=== PATIENT | male | born 1970 | race Caucasian/White ===

== ENCOUNTER 2017-03-16 14:05 | Emergency (ER) | payer SELFPAY ==
[~2017-03-16] VITALS: Ht 177.8 cm; Wt 105.5 kg
[~2017-03-16 14:05] MED LIST: OILCAP PO; PENI500T PO; TRAM50TA PO
[2017-03-16 14:09] VITALS: BP 133/87; PULSE 80; RESP 18; TEMP 97.8; O2SAT 94
--- NOTE | 2017-03-16 14:39 | PD ---
HPI Chief Complaint: Musculoskeletal Complaint Time Seen by Provider: 14:31 Travel History International Travel<30 days: No Contact w/Intl Traveler<30days: No Traveled to known affect area: No History of Present Illness HPI Patient is a 47-year-old male who presents to emergency with complaints of left sided knee pain for the past week. 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 Patient denies any injury or trauma to his knee besides picking up the lawnmower. Denies fever/chills. Reports pain with ROM to knee PFSH Past Medical History Hx Anticoagulant Therapy: No Asthma: Yes Cardiac Catheterization: Yes (2003) Cardiovascular Problems: Yes High Cholesterol: Yes Chemotherapy: No Cerebrovascular Accident: No Diabetes: No Diminished Hearing: No GERD: Yes Headaches: Yes (Tension) Musculoskeletal: Yes (Chronic neck pain after head injury 7 years ago) Neurologic: Yes (Trigeminal neuralgia) Respiratory: Yes (ASTHMA) Immunizations Current: Yes Migraines: Yes Tetanus Vaccination: > 5 Years Influenza Vaccination: No Past Surgical History Coronary Artery Bypass Graft: Yes (2003) Hysterectomy: No Social History Alcohol Use: No Tobacco Use: No Substance Use: No Allergies-Medications (Allergen,Severity, Reaction): Coded Allergies: Klonopin (Verified Allergy, Severe, Psychosis, 03/16/17) Lyrica (Verified Allergy, Unknown, Joint Pain, 03/16/17) Reported Meds & Prescriptions Reported Meds & Active Scripts Active Percocet (Oxycodone-Acetaminophen) 5-325 mg Tab 1 Tab PO Q6H PRN Ibuprofen 600 Mg Tab 600 Mg PO Q6H PRN Review of Systems General / Constitutional: No: Fever Eyes: No: Visual changes HENT: No: Headaches Cardiovascular: No: Chest Pain or Discomfort Respiratory: No: Shortness of Breath Gastrointestinal: No: Abdominal Pain Genitourinary: No: Dysuria Musculoskeletal: Positive: Pain (pain with ROM to left knee), No: Limited ROM Skin: No Rash Neurologic: No: Weakness Psychiatric: No: Depression Endocrine: No: Polydipsia Hematologic/Lymphatic: No: Easy Bruising Physical Exam Narrative GENERAL: nad, nontoxic SKIN: Focused skin assessment warm/dry. HEAD: Atraumatic. Normocephalic. EYES: Pupils equal and round. No scleral icterus. No injection or drainage. ENT: No nasal bleeding or discharge. Mucous membranes pink and moist. NECK: Trachea midline. No JVD. CARDIOVASCULAR: Regular rate and rhythm. No murmur appreciated. RESPIRATORY: No accessory muscle use. Clear to auscultation. Breath sounds equal bilaterally. GASTROINTESTINAL: Abdomen soft, non-tender, nondistended. Hepatic and splenic margins not palpable. MUSCULOSKELETAL: No obvious deformities. No clubbing. No cyanosis. No edema. Patient with pain to lateral knee with ROM, no obvious fx, pulses intact, neurovascularly intact NEUROLOGICAL: Awake and alert. No obvious cranial nerve deficits. Motor grossly within normal limits. Normal speech. PSYCHIATRIC: Appropriate mood and affect; insight and judgment normal. Data Data Last Documented VS Vital Signs Date Time Temp Pulse Resp B/P Pulse Ox O2 Delivery O2 Flow Rate FiO2 03/16/17 14:09 97.8 80 18 133/87 94 Orders Knee, Complete (4vws) (03/16/17 ) Oxycodone-Acetamin 5-325 Mg (Percocet (03/16/17 14:45) MDM Medical Decision Making Medical Screen Exam Complete: Yes Emergency Medical Condition: Yes Interpretation(s) Vital Signs Date Time Temp Pulse Resp B/P Pulse Ox O2 Delivery O2 Flow Rate FiO2 03/16/17 14:09 97.8 80 18 133/87 94 Differential Diagnosis Knee sprain, knee contusion, arthritis Narrative Course Patient is a 47-year-old male who presents to emergency room with complaints of left-sided knee pain. 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 Reports pain with ROM to left knee. No other injuries or trauma. Xray of knee ordered Last Impressions Knee X-Ray 03/16/17 0000 Signed Impressions: Service Date/Time: Thursday, March 16, 2017 14:35 - CONCLUSION: 1. Mild degenerative change in patellofemoral joint. 2. Small joint effusion. 3. No acute fracture or malalignment. Niraj Alicea MD patient given a copy of her xray report. patient will follow up with pcp and ortho as outpt and will return to ER as needed. knee pain most likely from inflammation from slight spurring in patellofemoral joint Diagnosis Primary Impression: Degenerative joint disease of knee, left Qualified Code: M17.12 - Primary osteoarthritis of left knee Additional Impression: Joint effusion, knee Qualified Code: M25.462 - Effusion of left knee Patient Instructions: General Instructions, Narcotic given in the ED Additional Instructions: Please follow up with your primary care doctor Return to ER as needed Rest/ice and elevate your left leg. Please bring your radiology report to your doctor's office for follow up on all findings from today Med/Other Pt SpecificInfo: Prescription(s) given Scripts Oxycodone-Acetaminophen (Percocet)5-325 mg Tab1 Tab PO Q6H PRN (PAIN) #12 TAB Ref 0 Prov:Kavita Godoy DO 03/16/17 Ibuprofen 600 Mg [id number] Mg PO Q6H PRN (Pain/Inflammation) #40 TAB Ref 0 Prov:Kavita Godoy DO 03/16/17 Disposition: 01 DISCHARGE HOME Condition: Stable Kavita Godoy DO Mar 16, 2017 14:39
[2017-03-16] MEDS ORDERED: oxyCODONE/ACETAMINOPHEN 5 MG/325 MG TAB PO ONE (14:45)
--- NOTE | 2017-03-16 14:57 | RADHPO ---
EXAM DATE/TIME: 03/16/2017 14:35 [facility] COMPARISON: No previous studies available for comparison. INDICATIONS : Left knee pain; fall 2 weeks ago. MEDICAL HISTORY : None. SURGICAL HISTORY : None. ENCOUNTER: Initial ACUITY: 2 weeks PAIN SCORE: 7/10 LOCATION: Left lateral knee FINDINGS: Four view examination of the left knee demonstrates no evidence of fracture or dislocation. Bony min eralization is normal. The articular surfaces are intact. There is fullness in the suprapatellar bur sa region consistent with a small joint effusion. Mild degenerative changes noted in the patellofemor al joint with slight spurring. CONCLUSION: 1. Mild degenerative change in patellofemoral joint. 2. Small joint effusion. 3. No acute fracture or malalignment. Niraj Alicea MD on March 16, 2017 at 14:54 Board Certified Radiologist. This report was verified electronically.
[2017-03-16] MEDS ORDERED: PERC5TAB12 PO (15:05)
[2017-03-16] MEDS ORDERED: IBUP-232 PO (15:05)
== END 2017-03-16 15:30 | disposition home or self-care (01) ==
LOC: PHED 14:05
DX: M17.12 Unilateral primary osteoarthritis, left knee (principal); M25.462 Effusion, left knee; E78.00 Pure hypercholesterolemia, unspecified; Z87.09 Personal history of other diseases of the respiratory system; Z86.79 Personal history of other diseases of the circulatory system; Z87.19 Personal history of other diseases of the digestive system; Z87.39 Personal history of other diseases of the musculoskeletal system and connective tissue; Z86.69 Personal history of other diseases of the nervous system and sense organs; X50.0XXA Overexertion from strenuous movement or load, initial encounter; Y99.0 Civilian activity done for income or pay
CPT/HCPCS: 73564; 99283

== ENCOUNTER 2017-06-27 13:42 | Emergency (ER) | payer SELFPAY ==
[~2017-06-27] VITALS: Ht 177.8 cm; Wt 100.0 kg
[~2017-06-27 13:42] MED LIST changes: +IBUP-232 PO; -OILCAP PO; -PENI500T PO; +PERC5TAB12 PO; -TRAM50TA PO
[2017-06-27 13:50] VITALS: BP 138/97; PULSE 94; RESP 18; TEMP 97.5; O2SAT 95
--- NOTE | 2017-06-27 14:25 | PD ---
HPI Chief Complaint: Pain: Acute or Chronic Time Seen by Provider: 14:10 Travel History International Travel<30 days: No Contact w/Intl Traveler<30days: No Traveled to known affect area: No History of Present Illness HPI 47-year-old male presents to the emergency room for evaluation of chronic right foot pain. Pain is been intermittent for the past year. No trauma or injury. Localized to the posterior calcaneus with radiation along the entire plantar section. He has bought several different orthopedic shoe inserts without significant relief in symptoms. He has also been taking BC powders occasionally. Pain started off as worse in the morning but is now worse at night. It is painful to apply any pressure to the bottom of the foot or push the pedal of his car. Patient states he cannot follow up with her primary care physician because he does not have finances to do so at this time. He is requesting a cortisone injection. History Past Medical Histgory Hx Chemotherapy: No Social History Alcohol Use: No Tobacco Use: No Allergies-Medications (Allergen,Severity, Reaction): Coded Allergies: Klonopin (Verified Allergy, Severe, Psychosis, 06/27/17) Lyrica (Verified Allergy, Unknown, Joint Pain, 06/27/17) Reported Meds & Prescriptions Reported Meds & Active Scripts Active No Active Prescriptions or Reported Medications Review of Systems Except as stated in HPI: all other systems reviewed are Neg Physical Exam Narrative GENERAL: Well-nourished, well-developed male in no acute distress. Afebrile. Ambulatory. SKIN: Focused skin assessment warm/dry. HEAD: Normocephalic. EYES: No scleral icterus. No injection or drainage. NECK: Supple, trachea midline. No JVD or lymphadenopathy. CARDIOVASCULAR: Regular rate and rhythm without murmurs, gallops, or rubs. RESPIRATORY: Breath sounds equal bilaterally. No accessory muscle use. MUSCULOSKELETAL: No cyanosis. No significant edema of the right foot. Full range of motion of the right foot. 2+ dorsalis pedis pulse. No erythema or ecchymosis. Tenderness to palpation of the plantar foot. Data Data Last Documented VS Vital Signs Date Time Temp Pulse Resp B/P Pulse Ox O2 Delivery O2 Flow Rate FiO2 06/27/17 13:50 97.5 94 18 138/97 95 MDM Medical Screen Exam Complete: Yes Emergency Medical Condition: No Differential Diagnosis Plantar fasciitis Narrative Course 47-year-old male presents to the emergency room for evaluation of chronic right foot pain. No trauma or injury. Right lower extremity is neurovascularly intact with 2+ dorsalis pedis pulse. No significant physical exam findings. History and physical exam are consistent with plantar fasciitis. Patient was informed we do not do cortisone injections in the emergency room. He was discharged with information for the [facility] and a pamphlet of plantar fasciitis exercises. Told to follow-up with the clinic for possible cortisone injection and/or referral or return for worsening symptoms. He understands and agrees to plan. A medical screening exam was performed: At the time of evaluation the presenting medical condition was determined not to be of an emergent nature. The patient was given the option of receiving additional care, but declined. Patient was given options for additional community resources from which to obtain care. The Patient Has Been advised to seek medical attention for their presenting complaint. The patient has been advised to return to the ER at any time if an emergent condition develops. Primary Impression: Encounter for medical screening examination Scripts No Active Prescriptions or Reported Meds Disposition: 01 DISCHARGE HOME Condition: Stable Quin Devi Jun 27, 2017 14:25
== END 2017-06-27 14:30 | disposition left against medical advice (07) ==
LOC: PHEFT 13:42
DX: M79.671 Pain in right foot (principal)
CPT/HCPCS: 99281

== ENCOUNTER 2018-02-20 10:54 | Emergency (ER) | payer SELFPAY ==
[~2018-02-20] VITALS: Ht 177.8 cm; Wt 104.0 kg
[2018-02-20 10:57] VITALS: BP 124/95; PULSE 72; RESP 18; TEMP 97.7; O2SAT 97
[2018-02-20] MEDS ORDERED: DIAZEPAM 5 MG TAB PO ONE (12:00)
[2018-02-20] MEDS ORDERED: KETOROLAC TROMETHAMINE 60 MG/2 ML (IM) VIAL IM ONE (12:00)
[2018-02-20] MEDS ORDERED: ROBA750T PO (12:13)
[2018-02-20] MEDS ORDERED: IBUP1TAB7 PO (12:13)
--- NOTE | 2018-02-20 12:14 | PD ---
HPI Chief Complaint: Back/ Neck Pain or Injury Time Seen by Provider: 11:39 Travel History International Travel<30 days: No Contact w/Intl Traveler<30days: No Traveled to known affect area: No History of Present Illness HPI This is a 48-year-old male here with low back pain since last night. He reports he has had similar episodes in the past when he has strained muscles. He denies fever, chills, incontinence, saddle anesthesia paresthesia or weakness in extremities. Pain is worse with movement and relieved with rest. Symptom severity is moderate. PFSH Past Medical History Hx Anticoagulant Therapy: No Asthma: Yes Cardiac Catheterization: Yes (2003) Cardiovascular Problems: Yes High Cholesterol: Yes Chemotherapy: No Cerebrovascular Accident: No Diabetes: Yes (II) Patient Takes Glucophage: No Diminished Hearing: No GERD: Yes Headaches: Yes (Tension) Musculoskeletal: Yes (Chronic neck pain after head injury 7 years ago) Neurologic: Yes (Trigeminal neuralgia) Respiratory: Yes (ASTHMA) Immunizations Current: Yes Migraines: Yes Past Surgical History Coronary Artery Bypass Graft: Yes (2003) Hysterectomy: No Social History Alcohol Use: No Tobacco Use: No Substance Use: No Allergies-Medications (Allergen,Severity, Reaction): Coded Allergies: clonazepam (Unverified Allergy, Severe, Psychosis, 02/20/18) pregabalin (Unverified Allergy, Unknown, Joint Pain, 02/20/18) Reported Meds & Prescriptions Reported Meds & Active Scripts Active No Active Prescriptions or Reported Medications Review of Systems Except as stated in HPI: all other systems reviewed are Neg General / Constitutional: No: Fever Eyes: No: Visual changes HENT: No: Headaches Cardiovascular: No: Chest Pain or Discomfort Respiratory: No: Shortness of Breath Gastrointestinal: No: Abdominal Pain Genitourinary: No: Dysuria Physical Exam Narrative GENERAL: Alert and well-appearing 40-year-old male SKIN: Warm and dry. HEAD: Normocephalic. EYES:. No injection or drainage. NECK: Supple CARDIOVASCULAR: Regular rate and rhythm RESPIRATORY: Breath sounds equal bilaterally. No accessory muscle use. GASTROINTESTINAL: Abdomen soft, non-tender, nondistended. MUSCULOSKELETAL: No cyanosis, or edema. Normal strength and sensation in the lower extremities. 2+ DTRs BACK: +TTP paravertebral musculature in the lumbar spine. No midline spine tenderness. No CVA tenderness. Data Data Last Documented VS Vital Signs Date Time Temp Pulse Resp B/P (MAP) Pulse Ox O2 Delivery O2 Flow Rate FiO2 02/20/18 10:57 97.7 72 18 124/95 (105) 97 Orders Orders Ketorolac Inj (Toradol Inj) (02/20/18 12:00) Diazepam (Valium) (02/20/18 12:00) MDM Medical Decision Making Medical Screen Exam Complete: Yes Emergency Medical Condition: Yes Differential Diagnosis Lumbar strain, herniated disc, DJD Narrative Course 48-year-old male here with a lumbar strain. He has normal neurologic exam. Vital signs are stable. He was given a shot of Toradol reports symptom improvement. He is stable and ready for discharge. Diagnosis Primary Impression: Lumbar strain Qualified Codes: S39.012A - Strain of muscle, fascia and tendon of lower back , initial encounter Referrals: Primary Care Physician Additional Instructions: Medication as directed. Ice and/or heat for comfort. Avoid heavy lifting or straining his activity. Follow-up with your doctor. Scripts Methocarbamol (Robaxin) 750 Mg Tab 750 MG PO QID for Muscle Spasm, #14 TAB 0 Refills Prov: Andree Salas 02/20/18 Ibuprofen (Ibuprofen) 800 Mg Tab 800 MG PO Q6HR Y for PAIN, #40 TAB 0 Refills Prov: Andree Salas 02/20/18 Disposition: 01 DISCHARGE HOME Condition: Stable Andree Salas Feb 20, 2018 12:14
== END 2018-02-20 12:27 | disposition home or self-care (01) ==
LOC: PHEFT 10:54
DX: S39.012A Strain of muscle, fascia and tendon of lower back, initial encounter (principal); X58.XXXA Exposure to other specified factors, initial encounter; E11.9 Type 2 diabetes mellitus without complications; E78.00 Pure hypercholesterolemia, unspecified; J45.909 Unspecified asthma, uncomplicated; K21.9 Gastro-esophageal reflux disease without esophagitis; G50.0 Trigeminal neuralgia; G89.21 Chronic pain due to trauma; M54.2 Cervicalgia
CPT/HCPCS: 96372; 99283; J1885